=== PATIENT | female | born 2000 | race Caucasian/White ===

== ENCOUNTER 2020-10-18 08:36 | Day surgery (SDC) | payer OTHER ==
[2020-10-17 10:46] VITALS: BMI 24.5
[2020-10-18 08:55] VITALS: TEMP 97.1
[2020-10-18] MEDS ORDERED: LIDOCAINE 1% (10MG/ML) FOR IV START INTRADERMA ONE (09:04)
[2020-10-18] MEDS: LACTATED RINGERS 1,000 ML IV SCH ×2 (09:04→10:13)
[2020-10-18] MEDS ORDERED: LIDOCAINE 1% INJ 10MG/ML (20 ML MDV) ONE (10:15)
[2020-10-18] MEDS ORDERED: PROPOFOL 10 MG/ML 20 ML VIAL IV ONE (10:15)
--- NOTE | 2020-10-18 10:23 | P.PCN ---
Date of Procedure: 10/18/20 Procedure(s) Performed: BRIEF HISTORY: Patient is a 20-year-old, pleasant, white female scheduled for an upper endoscopy as a part of evaluation of chronic intermittent nausea vomiting for the last 2 years duration. She has these episodes at least 3-4 times a week. Recently was started on Protonix 40 mg daily with some improvement in her symptoms.. PROCEDURE PERFORMED: Esophagogastroduodenoscop with biopsy . PREOPERATIVE DIAGNOSIS: Chronic intermittent nausea vomiting of 4 years duration. IV sedation per anesthesia. PROCEDURE: After informed consent was obtained, the patient was brought into the endoscopy unit. IV sedation was administered by Anesthesia under continuous monitoring. Initially the Olympus GIF-140 video endoscope was inserted into the mouth. Esophagus intubated without any difficulty. It was gradually advanced into the stomach and duodenum and carefully examined. The bulb and the second part of the duodenum appeared normal. Biopsies were done from the duodenum to rule out celiac disease. The scope at this time was withdrawn to the stomach, adequately insufflated with air, and upon careful examination, mucosa of the antrum had very minimal mottling of the mucosa in the prepyloric area which was biopsied. Rest of the, body, cardia and the fundus appeared normal. The scope was then withdrawn into the esophagus. The GE junction was located at 39 cm from the incisors. The esophagus appeared normal. There were no erosions or ulcerations seen , biopsies were done from the distal esophagus and the patient tolerated the procedure well. IMPRESSION: 1. Mild minimal antral gastric. 2. No evidence of esophagitis or peptic ulcer disease. RECOMMENDATIONS: The findings of this examination were discussed with the patient as well as a family. She was advised to follow with the biopsy results. In the meantime she will continue with Protonix 40 mg daily and follow antireflux measures. She will be seen in office in 4 weeks.
[2020-10-18 10:30] VITALS: RESP 18
[2020-10-18 10:43] VITALS: BP 108/77; PULSE 71
== END 2020-10-18 11:10 | disposition home or self-care (01) ==
LOC: ORWHC2ENDO 08:36
PROVIDERS: ATTEND Internal Medicine Gastroenterology
DX: K29.50 Unspecified chronic gastritis without bleeding (principal); K21.9 Gastro-esophageal reflux disease without esophagitis; Z79.3 Long term (current) use of hormonal contraceptives; Z79.899 Other long term (current) drug therapy
CPT/HCPCS: 81025; 88305; 43239; J2001; J2704